=== PATIENT | male | born 1950 | race Caucasian/White ===

== ENCOUNTER → 2017-10-26 | Outpatient (CLI) | payer OTHER ==
[~2017-10-26] MED LIST: BUDE10.2 INH; CYAN500T2 PO; CYCL-259 PO; FERR325T18 PO; LEVO100T5 PO; MONT10TA9 PO; OMEP-110 PO; POTA20TA91 PO; PRED5TAB PO; ROPI2TAB6 PO; TAMS0.4C2 PO; TOPI100T8 PO
== END | disposition home or self-care (01) ==
LOC: ROC 14:54
PROVIDERS: ATTEND Radiology Radiation Oncology
DX: C34.90 Malignant neoplasm of unspecified part of unspecified bronchus or lung (principal)
CPT/HCPCS: 99214; G0463

== ENCOUNTER → 2017-10-26 | Outpatient (CLI) | payer OTHER | END | disposition home or self-care (01) | LOC: ROC 13:57 | PROVIDERS: ATTEND Radiology Radiation Oncology | DX: Z02.9 Encounter for administrative examinations, unspecified (principal) ==

== ENCOUNTER → 2018-02-17 | Outpatient (CLI) | payer OTHER | END | disposition home or self-care (01) | LOC: ROC 08:26 | PROVIDERS: ATTEND Radiology Radiation Oncology | DX: C34.11 Malignant neoplasm of upper lobe, right bronchus or lung (principal) | CPT/HCPCS: 99212; G0463 ==